=== PATIENT | female | born 1995 | race Caucasian/White ===

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

== ENCOUNTER 2019-02-23 08:40 | Outpatient (CLI) | payer MEDICAID ==
[~2019-02-23] VITALS: Ht 149.9 cm; Wt 72.7 kg
[2019-02-23 08:45] VITALS: BP 116/87
[2019-02-23] MEDS ORDERED: IRON1TAB60 PO (08:52)
[2019-02-23] MEDS ORDERED: ASPI-496 PO (08:52)
[2019-02-23] MEDS ORDERED: PREN-3 PO (08:52)
== END 2019-02-23 10:20 | disposition home or self-care (01) ==
LOC: LDOP 08:40
PROVIDERS: ATTEND Obstetrics & Gynecology
DX: O46.93 Antepartum hemorrhage, unspecified, third trimester (principal); Z3A.37 37 weeks gestation of pregnancy
CPT/HCPCS: 59025; 99201; G0463

== ENCOUNTER 2019-03-10 17:31 | Inpatient (IN) | payer MEDICAID ==
[~2019-03-10] VITALS: Ht 149.9 cm; Wt 64.6 kg
[~2019-03-10 17:31] MED LIST: ASPI-496 PO; IRON1TAB60 PO; PREN-3 PO
[2019-03-10 18:16] LABS: BASOPHILS # (AUTO) 0.04 x10^3/uL (0-0.1); BASOPHILS % (AUTO) 1 % (0-1); EOSINOPHILS # (AUTO) 0.09 x10^3/uL (0-0.4); EOSINOPHILS % (AUTO) 1 % (1-7); LYMPHOCYTES # (AUTO) 2.28 x10^3/uL (1-3.4); LYMPHOCYTES % (AUTO) 32 % (22-44); MD NO; MEAN CORPUSCULAR HEMOGLOBIN 29.7 pg (27.0-34.8); MEAN CORPUSCULAR HGB CONC 32.8 g/dL (32.4-35.8); MEAN CORPUSCULAR VOLUME 90.4 fL (80-100); MONOCYTES # (AUTO) 0.22 x10^3/uL (0.2-0.8); MONOCYTES % (AUTO) 3 % (2-9); NEUTROPHILS # (AUTO) 4.55 x10^3/uL (1.8-6.8); NEUTROPHILS % (AUTO) 63 % (42-75); PLATELET COUNT 290 x10^3/uL (130-400); RED BLOOD COUNT 4.65 x10^6/uL (3.82-5.3); RED CELL DISTRIBUTION WIDTH 14.8 % (9.6-15.2)
[2019-03-10 18:24] LABS: ALBUMIN 3.6 g/dL (3.4-5.0); ANION GAP 7 mmol/L (5-15); CHLORIDE 112 mmol/L (98-107)
[2019-03-10 18:27] LABS: ALANINE AMINOTRANSFERASE 21 U/L (12-78); ALKALINE PHOSPHATASE 56 U/L (45-117); BILIRUBIN,TOTAL 0.2 mg/dL (0.2-1.0); CREATININE 0.75 mg/dL (0.55-1.02); TOTAL PROTEIN 7.5 g/dL (6.4-8.2)
--- NOTE | 2019-03-10 19:37 | NUR ---
PT IN BR WITH URINE CUP AT THIS TIME.
--- NOTE | 2019-03-10 19:50 | NUR ---
FIRST CONTACT WITH PT. PT STATES "I WENT TO THE HOSPITAL RECENTLY AT [facility], MY BP WAS 156/102, THEY DISCHARGED ME, I TOLD THEM I DIDNT FEEL WELL ENOUGH, THEY DC'D ME ANYWAY. I WENT BACK TO [place]. HAD BABY 8 DAYS AGO. HAVING NORMAL BLEEDING. NO PROTEIN IN URINE. I DONT KNOW WHAT IS WRONG WITH ME. I FEEL LIGHTHEADED. A LITTLE CP EARLIER, MIGRAINE THAT WONT GO AWAY, LOW ABD AND BACK PAIN" PT'S AOX4. RESPS EVEN AND UNLABORED. BP/SPO2 MONITORS IN PLACE. CALL LIGHT WITHIN REACH.
--- NOTE | 2019-03-10 19:53 | NUR ---
THIS RN WALKED TO LAB FOR UA.
[2019-03-10] MEDS ORDERED: METOCLOPRAMIDE 5 MG/ML, 2ML IVPush ONE (20:00)
[2019-03-10] MEDS ORDERED: ONDANSETRON 2MG/ML, 2ML IVPush ONE (20:00)
[2019-03-10] MEDS ORDERED: SODIUM CHLORIDE 0.9% 1,000ML IVBOLUS ONE (20:00)
[2019-03-10] MEDS ORDERED: DIPHENHYDRAMINE 50 MG/ML, 1ML IVPush ONE (20:00)
[2019-03-10] MEDS ORDERED: ONDANSETRON 2MG/ML, 2ML ONE (20:03)
[2019-03-10 20:09] LABS: CULTURE INDICATED? YES; MICROSCOPIC INDICATED
[2019-03-10] MEDS ORDERED: DIPHENHYDRAMINE 50 MG/ML, 1ML ONE (20:27)
[2019-03-10] MEDS ORDERED: METOCLOPRAMIDE 5 MG/ML, 2ML ONE (20:27)
--- NOTE | 2019-03-10 20:38 | NUR ---
PT MEDICATED PER EMAR. PT TOLERATED WELL. NS INFUSING AT THIS TIME.
--- NOTE | 2019-03-10 20:38 | NUR ---
LAB CALLED REQUESTING SECOND URINE BE SENT TO LAB.
--- NOTE | 2019-03-10 20:51 | NUR ---
PT STRAIGHT CATH'D USING STERILE TECHNIQUE. PT TOLERATED WELL. THIS RN WALKED TO LAB AT THIS TIME.
[2019-03-10 20:55] LABS: MICROSCOPIC NOT IND
[2019-03-10 21:09] LABS: CULTURE INDICATED? NO
[2019-03-10] MEDS ORDERED: MAGNESIUM SULFATE PMX 4GM/100M 100 ML IV ONE (21:30)
--- NOTE | 2019-03-10 21:38 | NUR ---
PT RESTING IN [facility]. PT'S AOX4. RESPS EVEN AND UNLABORED.
--- NOTE | 2019-03-10 21:53 | NUR ---
MEDICATION ORDERED FROM PHARMACY.
--- NOTE | 2019-03-10 22:06 | NUR ---
REPORT GIVEN TO KORY VANESSA. ALL QUESTIONS ANSWERED.
[2019-03-10 22:29] VITALS: BP 136/98
[2019-03-10] MEDS ORDERED: MAGNESIUM SULFATE PMX 2GM/50ML 50 ML IVPB ONE (22:30)
[2019-03-10] MEDS ORDERED: LABETALOL 100 MG TABLET ONE (22:45)
[2019-03-10] MEDS ORDERED: MAGNESIUM SULF. PMX 20GM/500ML 500 ML IV ONE (22:45)
[2019-03-10] MEDS ORDERED: MAGNESIUM SULF. PMX 20GM/500ML 500 ML IV SCH (22:48)
[2019-03-10] MEDS ORDERED: LABETALOL 200 MG TABLET PO SCH (23:00)
[2019-03-11] MEDS: HYDROXYZINE PAMOATE 25MG CAP PO PRN ×2 (00:27→11:28)
[2019-03-11 04:17] LABS: ALANINE AMINOTRANSFERASE 18 U/L (12-78); ANION GAP 9 mmol/L (5-15); BASOPHILS # (AUTO) 0.03 x10^3/uL (0-0.1); BASOPHILS % (AUTO) 1 % (0-1); CALCIUM 7.5 mg/dL (8.5-10.1); CHLORIDE 110 mmol/L (98-107); CREATININE 0.61 mg/dL (0.55-1.02); EOSINOPHILS # (AUTO) 0.16 x10^3/uL (0-0.4); EOSINOPHILS % (AUTO) 2 % (1-7); LYMPHOCYTES # (AUTO) 3.67 x10^3/uL (1-3.4); LYMPHOCYTES % (AUTO) 51 % (22-44); MD NO; MEAN CORPUSCULAR HEMOGLOBIN 29.6 pg (27.0-34.8); MEAN CORPUSCULAR HGB CONC 32.9 g/dL (32.4-35.8); MEAN CORPUSCULAR VOLUME 89.9 fL (80-100); MONOCYTES # (AUTO) 0.43 x10^3/uL (0.2-0.8); MONOCYTES % (AUTO) 6 % (2-9); NEUTROPHILS # (AUTO) 2.96 x10^3/uL (1.8-6.8); NEUTROPHILS % (AUTO) 41 % (42-75); PLATELET COUNT 233 x10^3/uL (130-400); RED BLOOD COUNT 4.35 x10^6/uL (3.82-5.3); RED CELL DISTRIBUTION WIDTH 14.8 % (9.6-15.2)
[2019-03-11 04:19] LABS: ALKALINE PHOSPHATASE 50 U/L (45-117); BILIRUBIN,TOTAL 0.1 mg/dL (0.2-1.0); TOTAL PROTEIN 6.2 g/dL (6.4-8.2)
[2019-03-11] MEDS: BUTALB/APAP/CAFFEINE 50MG/325MG/40MG PO PRN ×3 (08:41→19:40)
[2019-03-11] MEDS: SODIUM CHLORIDE FLUSH 3ML SYRINGE IVF SCH ×2 (08:42→21:30)
[2019-03-11] MEDS ORDERED: IBUPROFEN 600 MG TABLET ONE (11:16)
[2019-03-11] MEDS ORDERED: IBUPROFEN 600 MG TABLET PO PRN (11:30)
[2019-03-11] MEDS: NAPROXEN 500 MG TABLET PO PRN (17:17)
[2019-03-11] MEDS ORDERED: ACETAMINOPHEN 325 MG TABLET ONE (20:46)
[2019-03-11] MEDS ORDERED: ESCITALOPRAM 10MG TABLET PO SCH (21:00)
[2019-03-11] MEDS ORDERED: ACETAMINOPHEN 325 MG TABLET PO PRN (21:00)
[2019-03-11] MEDS ORDERED: LABETALOL 100 MG TABLET ONE (21:33)
[2019-03-11] MEDS: LABETALOL 100 MG TABLET PO SCH (21:35)
[2019-03-12] MEDS: BUTALB/APAP/CAFFEINE 50MG/325MG/40MG PO PRN ×3 (00:01→13:06)
[2019-03-12] MEDS: NAPROXEN 500 MG TABLET PO PRN (04:33)
[2019-03-12 07:44] VITALS: BP 120/69
[2019-03-12] MEDS ORDERED: LABETALOL 100 MG TABLET ONE (08:21)
[2019-03-12] MEDS: SODIUM CHLORIDE FLUSH 3ML SYRINGE IVF SCH (09:00)
[2019-03-12] MEDS: LABETALOL 100 MG TABLET PO SCH (09:03)
[2019-03-12] MEDS ORDERED: BUTA-177 PO (13:19)
[2019-03-12] MEDS ORDERED: NAPR-685 PO (13:21)
[2019-03-12] MEDS ORDERED: ESCI10TA10 PO (13:22)
[2019-03-12] MEDS ORDERED: LABE100T6 PO (13:24)
== END 2019-03-12 14:20 | disposition home or self-care (01) | DRG 776 ==
LOC: ED 21:00 → EDIP 21:35 → LDIP 22:17
PROVIDERS: ADMIT Obstetrics & Gynecology; ATTEND Obstetrics & Gynecology
DX: O14.95 Unspecified pre-eclampsia, complicating the puerperium (principal); F41.9 Anxiety disorder, unspecified; F53.0 Postpartum depression; O99.89 Other specified diseases and conditions complicating pregnancy, childbirth and the puerperium; O99.345 Other mental disorders complicating the puerperium
CPT/HCPCS: 36415; 80053; 81001; 81003; 83735; 84550; 85025; 87086; 93005; 99285; G0378; J2405; J1200; J2765; J3475; J7030

== ENCOUNTER 2019-03-27 12:25 | Emergency (ER) | payer MEDICAID ==
[~2019-03-27] VITALS: Ht 149.9 cm; Wt 63.1 kg
[~2019-03-27 12:25] MED LIST changes: +BUTA-177 PO; +ESCI10TA10 PO; +LABE100T6 PO; +NAPR-685 PO
[2019-03-27 13:16] LABS: BASOPHILS # (AUTO) 0.04 x10^3/uL (0-0.1); BASOPHILS % (AUTO) 1 % (0-1); EOSINOPHILS # (AUTO) 0.18 x10^3/uL (0-0.4); EOSINOPHILS % (AUTO) 3 % (1-7); LYMPHOCYTES # (AUTO) 2.95 x10^3/uL (1-3.4); LYMPHOCYTES % (AUTO) 43 % (22-44); MD NO; MEAN CORPUSCULAR HGB CONC 33.1 g/dL (32.4-35.8); MEAN CORPUSCULAR VOLUME 87.6 fL (80-100); MEAN PLATELET VOLUME 9.4 fL (7.4-10.4); MONOCYTES # (AUTO) 0.24 x10^3/uL (0.2-0.8); MONOCYTES % (AUTO) 4 % (2-9); NEUTROPHILS # (AUTO) 3.47 x10^3/uL (1.8-6.8); NEUTROPHILS % (AUTO) 50 % (42-75); PLATELET COUNT 213 x10^3/uL (130-400); RED BLOOD COUNT 4.85 x10^6/uL (3.82-5.3); RED CELL DISTRIBUTION WIDTH 14.4 % (9.6-15.2)
[2019-03-27 13:21] LABS: ALBUMIN 4.5 g/dL (3.4-5.0); ANION GAP 7 mmol/L (5-15); CALCIUM 8.8 mg/dL (8.5-10.1); CHLORIDE 110 mmol/L (98-107); CREATININE 0.78 mg/dL (0.55-1.02)
--- NOTE | 2019-03-27 13:48 | NUR ---
nax1
--- NOTE | 2019-03-27 13:49 | NUR ---
pt ambulates well to ED room.
[2019-03-27 14:37] LABS: ALANINE AMINOTRANSFERASE 26 U/L (12-78); ALBUMIN 4.5 g/dL (3.4-5.0)
--- NOTE | 2019-03-27 14:38 | NUR ---
AMBULATED TO BATHROOM TO GIVE URINE SAMPLE, NO ASSISTANCE NEEDED.
[2019-03-27 14:40] LABS: ALKALINE PHOSPHATASE 62 U/L (45-117); BILIRUBIN,TOTAL 0.4 mg/dL (0.2-1.0); TOTAL PROTEIN 7.4 g/dL (6.4-8.2)
[2019-03-27 14:41] LABS: BILIRUBIN, DIRECT < 0.1 mg/dL (0.1-0.2); BILIRUBIN,INDIRECT 0.3 mg/dL (0.0-2.0)
--- NOTE | 2019-03-27 14:47 | NUR ---
MD EVALUATING PT
[2019-03-27 15:01] LABS: MICROSCOPIC AUTO
[2019-03-27 15:02] LABS: CULTURE INDICATED? YES
[2019-03-27] MEDS ORDERED: ACETAMINOPHEN 500 MG TABLET ONE (15:54)
[2019-03-27 15:59] VITALS: BP 152/102
--- NOTE | 2019-03-27 15:59 | NUR ---
MEDICATED FOR TURPIN. AWAITING CT
[2019-03-27] MEDS ORDERED: ACETAMINOPHEN 500 MG TABLET PO ONE (16:00)
== END 2019-03-27 16:57 | disposition home or self-care (01) ==
LOC: ED 14:19
DX: I10 Essential (primary) hypertension (principal); J01.20 Acute ethmoidal sinusitis, unspecified; J01.00 Acute maxillary sinusitis, unspecified
CPT/HCPCS: 36415; 70450; 80048; 80076; 81001; 82040; 85025; 87086; 93005; 99284